=== PATIENT | female | born 1960 | race American Indian/Alaskan Native ===

== ENCOUNTER 2017-06-26 09:13 | Day surgery (SDC) | payer OTHER ==
[2017-06-26] MEDS ORDERED: NACL 0.9% 1000 ML 1,000 ML IV SCH (11:00)
[2017-06-26] MEDS ORDERED: WATER FOR IRRIG STERILE IR ONE (11:25)
[2017-06-26] MEDS ORDERED: DIPRIVAN 10 MG/ML IV ONE ×3 (11:33→12:21)
--- NOTE | 2017-06-26 11:33 | Anesthesia Day of Surgery ---
Anesthesia Day of Surgery - Day of Surgery Patient Examined: Yes Patient H&P Reviewed: Yes Patient is NPO: Yes
--- NOTE | 2017-06-26 11:33 | Anesthesia Consultation ---
Anesthesia Consult and Med Hx Date of service: 06/26/17 - Airway Anesthetic Teeth Evaluation: Good ROM Head & Neck: Adequate Mental/Hyoid Distance: Adequate Mallampati Class: Class III Intubation Access Assessment: Possibly Difficult - Pulmonary Exam CTA: Yes - Cardiac Exam Cardiac Exam: RRR - Pre-Operative Health Status ASA Pre-Surgery Classification: ASA2 Proposed Anesthetic Plan: MAC - Other Systems Hx Obesity: Yes
--- NOTE | 2017-06-26 12:31 | Operative Report ---
Operative Report Operative Report: Date of procedure: 06/26/2017 Procedure: Colonoscopy with cold snare polypectomy, submucosal injection, Hemoclip application, multiple polyp ablations and Hot biopsy polypectomy. Attending physician: Juwan Kunz M.D. Welder Operator: Juwan Kunz M.D. Indication: Patient is a 64-year-old female who presents for screening colonoscopy. Patient also has a family history of colorectal cancer. This colonoscopy serves to evaluate patient so that treatment may be directed based on the findings. Consent: Informed consent was obtained after advising the patient and family regarding nature of this procedure, its indications, potential benefits as well as possible complications including but not limited to bleeding perforation and adverse reaction to medication, infection as well as other cardiopulmonary complications. An informed written and verbal consent was then obtained after due opportunity was provided for questions and answers. Monitoring: Patient was monitored continuously with pulse oximetry and electrocardiographic recordings as well as blood pressure recordings. Vital signs remained stable throughout this procedure with no untoward events. Preoperative assessment: Patient was assessed immediately prior to this procedure for capacity to tolerate monitored anesthesia care and moderate sedation as well as general anesthesia. Patient's ASA classification is 2, Mallampati class is 2, Hyomental distance is 3. Instrument: [employer] video colonoscope. Medications: Propofol given intravenously in divided doses. For details please refer to anesthesia records. Description of procedure: Patient was placed in the left lateral decubitus position after achieving sedation, a digital rectal examination was performed following which the colonoscope was introduced into the anal verge and advanced to the cecum which was identified by the cecal valve, the appendiceal orifice, as well as by the cecal strap and direct transillumination. The colonoscope was subsequently withdrawn with careful inspection of all mucosal surfaces. Patient tolerated this procedure well and was subsequently taken to the recovery room. The following findings were noted. Findings: Patient had a broad-based 8mm flat polyp in the cecum. This was elevated with submucosal injection of saline and removed with a cold snare. Patient also had 2 diminutive polyps in the ascending colon. One polyp measured approximate 5-6 mm and was removed by hot biopsy polypectomy. Another polyp was flat and measured about 3-4 mm was ablated. The transverse colon was normal. There were diverticula seen in the sigmoid colon and descending colon. In the rectum close to the anal verge, there were 2 diminutive flat polyps that were completely ablated. Impression: Cecal polyp status post cold snare polypectomy and submucosal injection. Ascending colon polyp status post hot biopsy polypectomy. Ascending colon polyp status post ablation Diverticular disease of the colon Rectal polyps status post ablation Internal hemorrhoids. Plan: Follow pathology report. High-fiber diet. Repeat colonoscopy in 5 years given family history of colon cancer and findings of colon polyps.
--- NOTE | 2017-06-26 12:31 | Discharge Summary ---
Short Stay Discharge Plan Activity: advance as tolerated Weight Bearing Status: Weight Bear as Tolerated Diet: regular Follow up with: KEILY RODRIGUEZ MD [Primary Care Provider] - 7 Days
[2017-06-26 12:48] VITALS: BP 140/72
== END 2017-06-26 09:14 | disposition home or self-care (01) ==
LOC: GIO 09:13
PROVIDERS: ATTEND Internal Medicine Gastroenterology
DX: Z12.11 Encounter for screening for malignant neoplasm of colon (principal); D12.0 Benign neoplasm of cecum; D12.2 Benign neoplasm of ascending colon; K62.0 Anal polyp; K64.8 Other hemorrhoids; I10 Essential (primary) hypertension; K21.9 Gastro-esophageal reflux disease without esophagitis; K57.30 Diverticulosis of large intestine without perforation or abscess without bleeding; E66.9 Obesity, unspecified; Z98.890 Other specified postprocedural states; Z98.51 Tubal ligation status; Z68.42 Body mass index [BMI] 45.0-49.9, adult
CPT/HCPCS: 45381; 45384; 45385; 45388; 88305; J2704; J7030